=== PATIENT | female | born 1985 | race Two or more races ===

== ENCOUNTER 2024-07-20 14:25 | Emergency (ER) | payer MEDICAID, OTHER ==
[~2024-07-20] VITALS: Ht 160 cm; Wt 74.7 kg
[2024-07-20] MEDS: ONDANSETRON ODT 4 MG TAB PO ONE (16:05)
[2024-07-20 16:06] LABS: Basophils # (auto) 0 10 ^3/uL (0-0.2); Basophils % (auto) 0.4 % (0.0-2.0); Eosinophils # (auto) 0.2 10 ^3/uL (0-0.8); Eosinophils % (auto) 2.6 % (0.0-7.0); Hematocrit 39.6 % (36.0-46.0); Hemoglobin 13.5 g/dL (12.2-16.2); Lymphocytes # (auto) 2.6 10 ^3/uL (0.4-5.4); Lymphocytes % (auto) 33.1 % (10.0-50.0); Mean Corpuscular Hemoglobin 29.6 pg (28.0-32.0); Mean Corpuscular Hgb Conc. 34.1 g/dL (32.0-36.0); Mean Corpuscular Volume 86.7 fL (80.0-100.0); Monocytes # (auto) 0.6 10 ^3/uL (0-1.3); Monocytes % (auto) 6.9 % (0.0-12.0); Neutrophils # (auto) 4.6 10 ^3/uL (1.6-8.6); Nucleated Red Blood Cells % 0.1 %; Platelet Count (auto) 283 10^3/uL (140-450); Red Blood Cells 4.57 10^6/uL (4.0-5.20); Red Cell Distribution Width 13.7 % (11.8-14.3)
[2024-07-20 16:07] VITALS: BP 113/84; PULSE 71; RESP 19; TEMP 97.8; O2SAT 99
[2024-07-20 16:09] LABS: Urine Bacteria FEW /hpf (None Seen); Urine Blood Negative /uL (Negative); Urine Clarity Clear (Clear); Urine Color Light-Yellow (Yellow); Urine Protein, UAD Negative (Negative); Urine Specific Gravity 1.022 (1.001-1.035); Urine Urobilinogen Normal (Negative); Urine WBC 2 /hpf (0 - 5)
[2024-07-20 16:28] LABS: Alanine Aminotransferase 21 U/L (7-40); Albumin 4.5 g/dL (3.2-4.8); Alkaline Phosphatase 67 U/L (46-116); Anion Gap 5 (5-15); Aspartate Aminotransferase 14 U/L (13-40); BUN/Creatinine Ratio 9.7 (10.0-20.0); Bilirubin, Total 0.4 mg/dL (0.2-1.0); Blood Urea Nitrogen 7 mg/dL (9-23); Calcium 9.2 mg/dL (8.7-10.4); Carbon Dioxide 26 mmol/L (20-30); Chloride 108 mmol/L (98-107); Glucose 86 mg/dL (74-106); Lipase 47 U/L (12-53); Potassium 3.9 mmol/L (3.5-5.1); Sodium 139 mmol/L (136-145); Total Protein 6.9 g/dL (5.7-8.2)
[2024-07-20] MEDS ORDERED: PANT40TA2 PO (16:36)
[2024-07-20] MEDS ORDERED: ZOFR4T PO (16:36)
[2024-07-20] MEDS ORDERED: NITR-87 PO (16:36)
== END 2024-07-20 17:00 | disposition home or self-care (01) ==
LOC: ER 14:25
DX: K29.70 Gastritis, unspecified, without bleeding (principal); R10.2 Pelvic and perineal pain
CPT/HCPCS: 36415; 76705; 80053; 81001; 83690; 84702; 85025; 99284; Q0162

== ENCOUNTER 2024-07-31 02:38 | Emergency (ER) | payer MEDICAID ==
[~2024-07-31] VITALS: Ht 172.7 cm; Wt 74.1 kg
[~2024-07-31 02:38] MED LIST: NITR-87 PO; PANT40TA2 PO; ZOFR4T PO
[2024-07-31 03:08] VITALS: BP 119/81; PULSE 61; RESP 18; TEMP 98.2; O2SAT 97
[2024-07-31 03:15] LABS: Urine Bacteria None Seen /hpf (None Seen)
[2024-07-31 03:32] LABS: Urine Blood 3+ /uL (Negative); Urine Clarity Clear (Clear); Urine Protein, UAD Negative (Negative); Urine Specific Gravity 1.006 (1.001-1.035); Urine Urobilinogen Normal (Negative); Urine WBC 2 /hpf (0 - 5)
[2024-07-31 03:33] LABS: Urine Color STRAW (Yellow)
[2024-07-31] MEDS ORDERED: BACDST PO (04:08)
[2024-07-31] MEDS: cefTRIAXone SOD 1,000 MG VL IM ONE (04:14)
[2024-07-31] MEDS: KETOROLAC TROMETH 60MG/2ML VIAL IM ONE (04:14)
== END 2024-07-31 04:28 | disposition home or self-care (01) ==
LOC: ER 02:38
DX: N39.0 Urinary tract infection, site not specified (principal); Z88.2 Allergy status to sulfonamides
CPT/HCPCS: 81001; 87086; 96372; 99284; J0696; J1885